=== PATIENT | female | born 1940 | race Caucasian/White ===

== ENCOUNTER 2018-09-27 14:10 | Emergency (ER) | payer MEDICARE, OTHER ==
--- NOTE | 2018-09-27 14:31 | UC ---
Skin Complaint HPI - HPI Summary HPI Summary: 78 yo female presents with tick bite to her abdomen. She first noticed this tick this morning and tried to pull it off, but left a piece embedded within the skin. She thinks it became attached to her yesterday as she was outside a lot yesterday. She has no pain at the site and has no other symptoms. - History of Current Complaint Time Seen by Provider: 09/27/18 14:31 Stated Complaint: TICK ON TUMMY Hx Obtained From: Patient Onset/Duration: Sudden Onset Current Severity: None - Allergy/Home Medications Allergies/Adverse Reactions: Allergies Allergy/AdvReac Type Severity Reaction Status Date / Time Iodinated Contrast- Oral and Allergy Intermediate Hives Verified 09/27/18 14:41 IV Dye iodine Allergy Intermediate Hives Verified 09/27/18 14:41 PMH/Surg Hx/FS Hx/Imm Hx Cardiovascular History: Cardiac Disease, Hypertension, Myocardial Infarction - Surgical History Surgical History: Yes Surgery Procedure, Year, and Place: open heart, triple bypass 06/19, [facility] 1947, NECK SURGERY, [facility], [place], [facility] [place], 1988 , [facility] CATARACT[facility], 2008, [facility] [place] MACULAR PUCKER LEFT EYE, [place], 2009. DEVIATED SEPTUM 1999 - Family History Known Family History: Positive: Cardiac Disease - Social History Occupation: Retired Alcohol Use: Rare Substance Use Type: None Smoking Status (MU): Never Smoked Tobacco Have You Smoked in the Last Year: No - Immunization History Most Recent Influenza Vaccination: never Most Recent Tetanus Shot: UTD Most Recent Pneumonia Vaccination: never Review of Systems All Other Systems Reviewed And Are Negative: Yes Constitutional: Positive: Negative Skin: Positive: Other - Tick bite abdomen Respiratory: Positive: Negative Cardiovascular: Positive: Negative Neurovascular: Positive: Negative Neurological: Positive: Negative Psychological: Positive: Negative Physical Exam - Summary Physical Exam Summary: GENERAL: NAD. WDWN. No pain distress. SKIN: LUQ of abdomen: there is a 5mm diameter of mild erythema and edema with central 1mm area of superficial skin loss. No streaking, bleeding, or drainage. CHEST: No accessory muscle use. Breathing comfortably and in no distress. CV: Pulses intact. Cap refill <2seconds NEURO: Alert. PSYCH: Age appropriate behavior. Triage Information Reviewed: Yes Vital Signs: Vital Signs: Temp Pulse Resp BP Pulse Ox 98.0 F 85 20 166/78 97 09/27/18 14:33 09/27/18 14:33 09/27/18 14:33 09/27/18 14:45 09/27/18 14:33 Vital Signs: Temp Pulse Resp BP Pulse Ox 98.0 F 85 20 166/78 97 09/27/18 14:33 09/27/18 14:33 09/27/18 14:33 09/27/18 14:45 09/27/18 14:33 Vital Signs Reviewed: Yes Course/Dx - Course Course Of Treatment: Manual BP much improved. Pt does not think tick was engorged and believes it was attached since yesterday. Advised to monitor the site for sign of infection and made her aware of signs/symptoms of lyme disease and advised to f/u with PCP if she develops any of these. - Diagnoses Provider Diagnosis: Tick bite Discharge - Sign-Out/Discharge Documenting (check all that apply): Patient Departure All imaging exams completed and their final reports reviewed: No Studies - Discharge Plan Condition: Stable Disposition: HOME Patient Education Materials: Tick Bite (ED) Referrals: Manas CAVAZOS,Estephania Hernandez [Primary Care Provider] - Additional Instructions: TICK BITE: You have been bitten by a tick. Once the tick is removed, these "bites" usually cause no problems. Tick fever, tick paralysis, Gilmore Spotted fever, and Lyme disease are uncommon -- but you should mention this tick bite to your doctor if you develop unusual symptoms in the next several weeks. If you develop any of the following, please see your physician promptly: (1) Fever, chills, or generalized malaise associated with a headache. (2) A red round area at the site of the bite (or elsewhere) (3) Joint pain, joint swelling or generalized weakness. (4) Redness, swelling, or drainage at the site of the bite. - Billing Disposition and Condition Condition: STABLE Disposition: Home
[2018-09-27 15:03] VITALS: BP 166/78
== END 2018-09-27 14:58 | disposition home or self-care (01) ==
LOC: UCEAST 14:10
DX: S30.861A Insect bite (nonvenomous) of abdominal wall, initial encounter (principal); W57.XXXA Bitten or stung by nonvenomous insect and other nonvenomous arthropods, initial encounter; Y92.9 Unspecified place or not applicable; I11.9 Hypertensive heart disease without heart failure; I25.2 Old myocardial infarction; Z95.1 Presence of aortocoronary bypass graft; Z88.3 Allergy status to other anti-infective agents; Z91.041 Radiographic dye allergy status
CPT/HCPCS: 99212; G0463

== ENCOUNTER 2019-02-28 09:38 | Emergency (ER) | payer MEDICARE, OTHER ==
[2019-02-28 10:52] LABS: ABS Eosinophils 0.1 10^3/ul (0-0.6); ABS Lymphocytes 1.1 10^3/ul (1.0-4.8); ABS Monocytes 0.5 10^3/ul (0-0.8); ABS Neutrophils 4.4 10^3/ul (1.5-7.7); Eosinophil % 0.8 %; Hematocrit 40 % (35-47); Hemoglobin 13.2 g/dL (12.0-16.0); Lymphocyte % 17.4 %; Mean Corpuscular HGB Conc 33 g/dL (31-36); Mean Corpuscular Hemoglobin 30 pg (27-31); Mean Corpuscular Volume 91 fL (80-97); Platelet Count 339 10^3/uL (150-450); Red Blood Count 4.43 10^6 /uL (3.70-4.87); Red Cell Distribution Width 14 % (10-15); White Blood Count 6.1 10^3/uL (3.5-10.8)
[2019-02-28 10:58] LABS: INR 1.03 (0.82-1.09)
[2019-02-28 11:06] LABS: Albumin 4.7 g/dL (3.2-5.2); Albumin/Globulin Ratio 1.6 (1-3); BUN/Creatinine Ratio 25.5 (8-20); C Reactive Protein 1.99 mg/L (<8.01); Calcium 9.4 mg/dL (8.6-10.3); EGFR Non-African American 106.6 (>60); Globulin 2.9 g/dL (2-4); Magnesium 2.1 mg/dL (1.9-2.7); Potassium 4.3 mmol/L (3.5-5.0); Total Bilirubin 0.3 mg/dL (0.2-1.0); Total Protein 7.6 g/dL (6.4-8.9)
[2019-02-28 11:19] LABS: Urine Appearance Clear; Urine Bilirubin Negative (Negative); Urine Blood Negative (Negative); Urine Color Colorless; Urine Glucose Negative (Negative); Urine Ketones Negative (Negative); Urine Nitrite Negative (Negative); Urine Protein Negative (Negative); Urine Specific Gravity 1.003 (1.010-1.030); Urine Urobilinogen Negative (Negative)
[2019-02-28] MEDS ORDERED: Labetalol IV* 5 MG/ML 20 ML VIAL IV PUSH ONE (11:31)
[2019-02-28 14:36] VITALS: BP 183/79
--- NOTE | 2019-03-01 06:18 | ED ---
Nausea/Vomiting/Diarrhea HPI - HPI Summary HPI Summary: This patient is a 79-year-old female with a history of triple bypass 5 years ago presenting to the ED with symptoms of diarrhea 2-3 days as well as " stomach problems" for approximate 2 weeks. She states her stomach has just not "felt quite right." Denies melena. She comes today for evaluation d/t chest pressure which was acute onset this morning, lasting a few minutes and dissipating. She states she did take a nitroglycerin at home, but believes this was several years and was not sure if it improved her symptoms. She is asymptomatic at this time. Friend at bedside states she has been somewhat more fatigued recently, but has not been complaining of any CP or SOB. Friend also states there are moments where she will develop a bright red face when she is exerting herself, however he did not notice that in the past few days. She denies any area in a symptoms or back pain. She denies any nausea or vomiting. She has never had stomach issues in the past and she does not recall eating anything abnormal. She continues to take her medications as prescribed, she takes metoprolol at bedtime. She was recently seen by a new PCP , but would like to change. She also sees Dr. Brito, but has not seen him in the past 6 months or so. She has been denying any fevers, sweats, chills. Patient currently takes daily aspirin and metoprolol. Lives with friend and gets around well independently. - History of Current Complaint Chief Complaint: EDGeneral Stated Complaint: NAUSEA/STOMACH FEELS OFF PER PT Time Seen by Provider: 02/28/19 09:47 Hx Obtained From: Patient ?: No Onset/Duration: Sudden Onset Timing: Constant Severity Initially: Mild Severity Currently: Mild Pain Intensity: 0 Pain Scale Used: 0-10 Numeric Aggravating Factor(s): Nothing Alleviating Factor(s): Nothing Diarrhea Frequency: Every 3-4 hours Diarrhea Duration: 24-36 hours - Risk Factors Influenza Risk Factors: Negative Surgical Obstruction Risk Factor(s): Negative - Allergies/Home Medications Allergies/Adverse Reactions: Allergies Allergy/AdvReac Type Severity Reaction Status Date / Time Iodinated Contrast Media Allergy Intermediate Hives Verified 02/28/19 09:53 [Iodinated Contrast- Oral and IV Dye] iodine Allergy Intermediate Hives Verified 02/28/19 09:53 Home Medications: Home Medications Fertile-3 Fatty Acids (Nf) [Fish Oil (NF)] 1,000 mg PO DAILY 02/28/19 [History Confirmed 02/28/19] PMH/Surg Hx/FS Hx/Imm Hx Previously Healthy: Yes Endocrine/Hematology History: Denies: Hx Diabetes Cardiovascular History: Reports: Hx Coronary Artery Disease, Hx Hypercholesterolemia, Hx Hypertension - ON MEDS Denies: Hx Angina, Hx Myocardial Infarction, Hx Pacemaker/ICD, Hx Valvular Heart Disease Respiratory History: Denies: Hx Asthma, Hx Chronic Obstructive Pulmonary Disease (COPD), Other Respiratory Problems/Disorders GI History: Denies: Other GI Disorders History: Denies: Hx Renal Disease Musculoskeletal History: Reports: Hx Arthritis - per pt Denies: Hx Rheumatoid Arthritis, Hx Osteoporosis, Other Musculoskeletal History Sensory History: Reports: Hx Cataracts - ERIC, Hx Contacts or Glasses Denies: Hx Hearing Aid Opthamlomology History: Reports: Hx Cataracts - ERIC, Hx Contacts or Glasses Neurological History: Denies: Other Neuro Impairments/Disorders Psychiatric History: Denies: Hx Panic Disorder - Cancer History Hx Chemotherapy: No Hx Radiation Therapy: No - Surgical History Surgery Procedure, Year, and Place: open heart, triple bypass 06/19, [facility]. 1947, NECK SURGERY, [facility] [place], [place] [facility] [place], [place] , [facility] [place]ACT[place] [facility] [place] MACULAR [place]ER [place], 2009. DEVIATED SEPTUM 1999 Hx Anesthesia Reactions: Yes - SLOW TO WAKE UP - Immunization History Hx Pertussis Vaccination: No Immunizations Up to Date: Yes Infectious Disease History: No Infectious Disease History: Denies: Traveled Outside the [place] in Last 30 Days - Family History Known Family History: Positive: Cardiac Disease - Social History Occupation: Unemployed Lives: With Family Alcohol Use: None Hx Substance Use: No Substance Use Type: Reports: None Hx Tobacco Use: No Smoking Status (MU): Never Smoked Tobacco Have You Smoked in the Last Year: No Review of Systems Constitutional: Negative Negative: Fever, Chills, Fatigue, Skin Diaphoresis Negative: Palpitations, Chest Pain Negative: Shortness Of Breath, Cough Positive: Diarrhea. Negative: Abdominal Pain, Vomiting, Nausea Genitourinary: Negative Positive: no symptoms reported, see HPI Negative: Arthralgia, Myalgia Negative: Rash, Bruising Negative: Headache, Weakness, Paresthesia, Numbness, Syncope, Slurred Speech Psychological: Normal All Other Systems Reviewed And Are Negative: Yes Physical Exam Triage Information Reviewed: Yes Vital Signs On Initial Exam: Initial Vitals Temp Pulse Resp BP Pulse Ox 97.4 F 90 16 261/110 96 02/28/19 09:41 02/28/19 09:41 02/28/19 09:41 02/28/19 09:41 02/28/19 09:41 Vital Signs Reviewed: Yes Appearance: Positive: Well-Appearing, Well-Nourished Skin: Positive: Warm, Skin Color Reflects Adequate Perfusion Head/Face: Positive: Normal Head/Face Inspection Eyes: Positive: EOMI, [place], Conjunctiva Clear Neck: Positive: Supple, Nontender, No Lymphadenopathy Respiratory/Lung Sounds: Positive: Clear to Auscultation, Breath Sounds Present Cardiovascular: Positive: RRR, Pulses are Symmetrical in both Upper and Lower Extremities. Negative: Leg Edema Left, Leg Edema Right Abdomen Description: Positive: Nontender, No Organomegaly, Soft. Negative: CVA Tenderness (R), CVA Tenderness (L), Distended, Guarding Musculoskeletal: Positive: Normal, Strength/ROM Intact Neurological: Positive: Sensory/Motor Intact, Alert, Oriented to Person Place, Time, Speech Normal Psychiatric: Positive: Normal, Affect/Mood Appropriate AVPU Assessment: Alert - [place] Coma Scale Best Eye Response: 4 - Spontaneous Best Motor Response: 6 - Obeys Commands Best Verbal Response: 5 - Oriented Coma Scale Total: 15 Diagnostics - Vital Signs Vital Signs Temp Pulse Resp BP Pulse Ox 02/28/19 14:35 97.0 F 86 20 183/79 96 02/28/19 14:22 81 15 183/79 96 02/28/19 14:07 77 18 154/67 97 02/28/19 14:00 75 23 98 02/28/19 13:52 73 17 126/109 95 02/28/19 13:38 75 24 174/116 97 02/28/19 13:22 74 24 135/87 96 02/28/19 13:07 78 22 140/73 97 02/28/19 13:00 81 19 97 02/28/19 12:52 17 178/96 02/28/19 12:00 74 21 95 02/28/19 11:52 79 21 158/77 97 02/28/19 11:31 240/108 02/28/19 11:05 88 24 241/84 98 02/28/19 11:04 91 94 02/28/19 10:00 78 19 98 02/28/19 09:57 87 24 98 02/28/19 09:41 97.4 F 90 16 261/110 96 - Laboratory Lab Results: Lab Results 02/28/19 02/28/19 02/28/19 Range/Units 10:34 10:34 10:34 WBC 6.1 (3.5-10.8) 10^3/uL RBC 4.43 (3.70-4.87) 10^6 /uL Hgb 13.2 (12.0-16.0) g/dL Hct 40 (35-47) % MCV 91 (80-97) fL MCH 30 (27-31) pg MCHC 33 (31-36) g/dL RDW 14 (10-15) % Plt Count 339 (150-450) 10^3/uL MPV 8.0 (7.4-10.4) fL Neut % (Auto) 72.4 % Lymph % (Auto) 17.4 % Tift % (Auto) 8.8 % Eos % (Auto) 0.8 % Baso % (Auto) 0.6 % Absolute Neuts (auto) 4.4 (1.5-7.7) 10^3/ul Absolute Lymphs (auto) 1.1 (1.0-4.8) 10^3/ul Absolute Monos (auto) 0.5 (0-0.8) 10^3/ul Absolute Eos (auto) 0.1 (0-0.6) 10^3/ul Absolute Basos (auto) 0.0 (0-0.2) 10^3/ul Absolute Nucleated RBC 0.0 10^3/ul Nucleated RBC % 0.0 INR (Anticoag Therapy) 1.03 (0.82-1.09) Sodium 141 (135-145) mmol/L Potassium 4.3 (3.5-5.0) mmol/L Chloride 108 (101-111) mmol/L Carbon Dioxide 26 (22-32) mmol/L Anion Gap 7 (2-11) mmol/L BUN 14 (6-24) mg/dL Creatinine 0.55 (0.51-0.95) mg/dL Est GFR ( Amer) 129.0 (>60) Est GFR (Non-Af Amer) 106.6 (>60) BUN/Creatinine Ratio 25.5 H (8-20) Glucose 105 H (70-100) mg/dL Lactic Acid (0.5-2.0) mmol/L Calcium 9.4 (8.6-10.3) mg/dL Magnesium 2.1 (1.9-2.7) mg/dL Total Bilirubin 0.30 (0.2-1.0) mg/dL AST 18 (13-39) U/L ALT 15 (7-52) U/L Alkaline Phosphatase 98 (34-104) U/L Troponin I 0.00 (<0.04) ng/mL C-Reactive Protein 1.99 (<8.01) mg/L B-Natriuretic Peptide (<=100) pg/mL Total Protein 7.6 (6.4-8.9) g/dL Albumin 4.7 (3.2-5.2) g/dL Globulin 2.9 (2-4) g/dL Albumin/Globulin Ratio 1.6 (1-3) Amylase 31 (29-103) U/L Lipase 22 (11.0-82.0) U/L Urine Color Urine Appearance Urine pH (5-9) Ur Specific [place] (1.010-1.030) Urine Protein (Negative) Urine Ketones (Negative) Urine Blood (Negative) Urine Nitrate (Negative) Urine Bilirubin (Negative) Urine Urobilinogen (Negative) Ur Leukocyte Esterase (Negative) Urine Glucose (Negative) 02/28/19 02/28/19 02/28/19 Range/Units 10:34 10:34 11:05 WBC (3.5-10.8) 10^3/uL RBC (3.70-4.87) 10^6 /uL Hgb (12.0-16.0) g/dL Hct (35-47) % MCV (80-97) fL MCH (27-31) pg MCHC (31-36) g/dL RDW (10-15) % Plt Count (150-450) 10^3/uL MPV (7.4-10.4) fL Neut % (Auto) % Lymph % (Auto) % Tift % (Auto) % Eos % (Auto) % Baso % (Auto) % Absolute Neuts (auto) (1.5-7.7) 10^3/ul Absolute Lymphs (auto) (1.0-4.8) 10^3/ul Absolute Monos (auto) (0-0.8) 10^3/ul Absolute Eos (auto) (0-0.6) 10^3/ul Absolute Basos (auto) (0-0.2) 10^3/ul Absolute Nucleated RBC 10^3/ul Nucleated RBC % INR (Anticoag Therapy) (0.82-1.09) Sodium (135-145) mmol/L Potassium (3.5-5.0) mmol/L Chloride (101-111) mmol/L Carbon Dioxide (22-32) mmol/L Anion Gap (2-11) mmol/L BUN (6-24) mg/dL Creatinine (0.51-0.95) mg/dL Est GFR ( Amer) (>60) Est GFR (Non-Af Amer) (>60) BUN/Creatinine Ratio (8-20) Glucose (70-100) mg/dL Lactic Acid 0.7 (0.5-2.0) mmol/L Calcium (8.6-10.3) mg/dL Magnesium (1.9-2.7) mg/dL Total Bilirubin (0.2-1.0) mg/dL AST (13-39) U/L ALT (7-52) U/L Alkaline Phosphatase (34-104) U/L Troponin I (<0.04) ng/mL C-Reactive Protein (<8.01) mg/L B-Natriuretic Peptide 94 (<=100) pg/mL Total Protein (6.4-8.9) g/dL Albumin (3.2-5.2) g/dL Globulin (2-4) g/dL Albumin/Globulin Ratio (1-3) Amylase (29-103) U/L Lipase (11.0-82.0) U/L Urine Color Colorless Urine Appearance Clear Urine pH 7.0 (5-9) Ur Specific [place] 1.003 L (1.010-1.030) Urine Protein Negative (Negative) Urine Ketones Negative (Negative) Urine Blood Negative (Negative) Urine Nitrate Negative (Negative) Urine Bilirubin Negative (Negative) Urine Urobilinogen Negative (Negative) Ur Leukocyte Esterase Negative (Negative) Urine Glucose Negative (Negative) Result Diagrams: 02/28/19 10:34 02/28/19 10:34 Lab Statement: Any lab studies that have been ordered have been reviewed, and results considered in the medical decision making process. - CT abd/pelvis CT Interpretation Completed By: Radiologist - IMPRESSION: 1. DIVERTICULOSIS. 2. ATHEROSCLEROSIS. 3. NO HYDRONEPHROSIS OR NEPHROLITHIASIS. - EKG 1 Cardiac Rate: NL EKG Rhythm: Sinus Rhythm ST Segment: Normal Ectopy: None EKG Comparison: No Significant Change Naus/Vom/Diarrhea Course/Dx - Course Course Of Treatment: During this course of treatment, the patient is evaluated for a variety of complaints. She states she has been having diarrhea 2-3 days and has been having "stomach issues" where she still a bubbling sensation over the past few weeks. She continues to eat and drink okay. She has been denying any recent illness, fevers, sweats, chills. This morning upon awakening, she developed some chest pressure which lasted a few minutes. She was able to take her nitroglycerin, but believes this has been . On physical examination , patient appears well, alert and oriented and pleasant. Lungs CTA, RRR. No abdominal tenderness throughout all 4 quadrants. No CVA tenderness. Patient is afebrile vital signs are stable except for hypertension. She states she typically has high blood pressure, usually 180/90 is her normal. On arrival to the ED, she was 261/110. She was subsequently given Lopressor 20 mg IV. This reduced her BP to 158/87. She's been denying any headaches, visual changes, difficulty with swallowing. Denies any recent weakness or fatigue. Labs are obtained and are unremarkable. UA obtained and is normal. CT abdomen/pelvis shows diverticulosis without diverticulitis. EKG shows normal sinus rhythm. Troponin 0.00. CRP 1.99. Patient is kept on a cardiopulmonary monitor and remained stable. She is currently only complaining of diarrhea, otherwise asymptomatic. Obtain stool sample. C. difficile negative. Pending other stool cultures. Discussed with patient at length the need for close follow-up due to her current symptoms and hx of bypass. She states she will f/u with Dr. Brito and she is given referral to [facility] and GI referral. She is stable upon discharge and voices no concerns at this time. - Differential Dx/Diagnosis Differential Diagnoses - Female: Other - chest pain, viral illness, generalized illness Provider Diagnosis: Diarrhea Condition At Discharge: Stable Discharge ED - Sign-Out/Discharge Documenting (check all that apply): Patient Departure Patient Received Moderate/Deep Sedation with Procedure: No - Discharge Plan Condition: Stable Disposition: HOME Patient Education Materials: Acute Diarrhea (ED) Referrals: [facility] [Outside] Buck Tineo MD [Medical Doctor] - Manas CAVAZOS,Estephania Hernandez [Primary Care Provider] - Sharmin Sykes MD [Medical Doctor] - Additional Instructions: Please follow-up with GI specialist, Dr. Terry, and [facility] - Billing Disposition and Condition Condition: STABLE Disposition: Home
== END 2019-02-28 14:34 | disposition home or self-care (01) ==
LOC: ED 09:38
DX: R19.7 Diarrhea, unspecified (principal); K57.30 Diverticulosis of large intestine without perforation or abscess without bleeding; I70.0 Atherosclerosis of aorta; I10 Essential (primary) hypertension; Z79.82 Long term (current) use of aspirin; Z95.1 Presence of aortocoronary bypass graft; Z88.3 Allergy status to other anti-infective agents; Z91.041 Radiographic dye allergy status
CPT/HCPCS: 36415; 74176; 80053; 81003; 82150; 83605; 83690; 83735; 83880; 84484; 85025; 85610; 86140; 87045; 87046; 87493; 87899; 93005; 96374; 99283

== ENCOUNTER 2021-12-15 05:58 | Observation (INO) ==
[2021-12-15] MEDS ORDERED: Buffered Lidocaine 1% SYRIN 1 ml INTRADERM ONE (06:00)
[2021-12-15] MEDS ORDERED: Lactated Ringers 1000 ml BAG 1,000 ML IV SCH ×2 (06:00→12:00)
[2021-12-15] MEDS ORDERED: ceFAZolin 2 GM PREMIX 2 GM/50 ML BAG ONE (06:23)
[2021-12-15] MEDS ORDERED: Phenylephrine IV 10 MG/ML 1 ml VIAL ONE (06:58)
[2021-12-15] MEDS ORDERED: Ondansetron 4 mg VIAL 2 MG/ML 2 ml VIAL ONE (06:58)
[2021-12-15] MEDS ORDERED: Lidocaine 2% PF 5 ML VIAL ONE (06:58)
[2021-12-15] MEDS ORDERED: Propofol 10 MG/ML 20 ML BTL ONE (06:58)
[2021-12-15] MEDS ORDERED: Dexamethasone IV 4 MG/ML VIAL 1 ml VIAL ONE (06:58)
[2021-12-15] MEDS ORDERED: fentaNYL 100 mcg/2 ml 50 MCG/ML VIAL ONE (06:58)
[2021-12-15] MEDS ORDERED: Rocuronium 50 mg VIAL 10 mg/ml 5 ml VIAL (50 mg) ONE (06:58)
[2021-12-15] MEDS ORDERED: Lidocaine 1% w EPI 1:200,000 SDV 30 ML VIAL ONE (06:59)
[2021-12-15] MEDS ORDERED: ceFAZolin 1 GM ADVAN 1 GM ADDV.VIAL IVPB ONE ×2 (07:00→07:09)
[2021-12-15] MEDS ORDERED: ROPIVACAINE 5 MG/ML 30 ML BTL (0.5%) ONE (07:16)
[2021-12-15] MEDS ORDERED: Midazolam 2 mg/2 ml VIAL 1 mg/ml 2 ml VIAL (2 mg) ONE (07:26)
[2021-12-15] MEDS ORDERED: Naloxone 0.4 mg VIAL 0.4 mg/ml 1 ml VIAL IV PRN (10:35)
[2021-12-15] MEDS ORDERED: fentaNYL 100 mcg/2 ml 50 MCG/ML VIAL IV PRN (10:35)
[2021-12-15] MEDS ORDERED: Ondansetron 4 mg VIAL 2 MG/ML 2 ml VIAL IV PRN ×2 (10:35→11:08)
[2021-12-15] MEDS ORDERED: Lactulose 30 ml UDC PO PRN (11:08)
[2021-12-15] MEDS ORDERED: Ondansetron ODT 4 mg TAB 4 MG TAB PO PRN (11:08)
[2021-12-15] MEDS ORDERED: Morphine 2 MG/ML SYRINGE IV PRN (11:08)
[2021-12-15] MEDS ORDERED: Magnesium Hydroxide LIQ 30 ML UDC PO PRN (11:08)
[2021-12-15] MEDS: ceFAZolin 1 GM ADVAN 1 GM in NS 0.9% 50 ML 50 ML IVPB SCH ×2 (16:10→23:39)
[2021-12-15] MEDS: Magnesium Hydroxide LIQ 30 ML UDC PO SCH (20:40)
[2021-12-16 06:37] LABS: Hematocrit 27 % (35-47); Hemoglobin 8.9 g/dL (12.0-16.0); Mean Platelet Volume 8.1 fL (7.4-10.4); Platelet Count 266 10^3/uL (150-450)
[2021-12-16 07:06] LABS: Calcium 8.4 mg/dL (8.6-10.3); Potassium 4.4 mmol/L (3.5-5.0)
[2021-12-16 07:12] LABS: eGFR CKD-EPI 91.2 (>60)
[2021-12-16] MEDS: Magnesium Hydroxide LIQ 30 ML UDC PO SCH (08:52)
[2021-12-16] MEDS ORDERED: Vitamin THERAPEUTIC TAB PO SCH (09:00)
[2021-12-16] MEDS: ceFAZolin 1 GM ADVAN 1 GM in NS 0.9% 50 ML 50 ML IVPB SCH (09:15)
[2021-12-16 11:38] VITALS: BP 107/69
== END 2021-12-16 13:40 | disposition home or self-care (01) ==
LOC: OR 05:58 → SSU 05:58 → EDSTATUS 07:30
PROVIDERS: ADMIT Orthopaedic Surgery Sports Medicine; ATTEND Orthopaedic Surgery Sports Medicine